=== PATIENT | female | born 2000 | race Caucasian/White ===

== ENCOUNTER 2020-08-24 16:21 | Outpatient (CLI) | payer BC, SELFPAY ==
[2020-08-24 16:59] LABS: Alanine Aminotransferase 10 U/L (4-35); Aspartate Amino Transferase 20 U/L (14-36)
== END 2020-08-24 16:22 | disposition home or self-care (01) ==
LOC: ANHLAB 16:26
PROVIDERS: Visit Provider Podiatrist Foot & Ankle Surgery
DX: B35.1 Tinea unguium (principal)
CPT/HCPCS: 36415; 84450; 84460

== ENCOUNTER 2020-11-23 13:37 | Outpatient (CLI) | payer BC, SELFPAY ==
[2020-11-23 14:20] LABS: Alanine Aminotransferase 10 U/L (4-35); Aspartate Amino Transferase 20 U/L (14-36)
== END 2020-11-23 13:38 | disposition home or self-care (01) ==
PROVIDERS: Visit Provider Podiatrist Foot & Ankle Surgery
DX: B35.1 Tinea unguium (principal)
CPT/HCPCS: 36415; 84450; 84460